=== PATIENT | male | born 1980 | race Caucasian/White ===

== ENCOUNTER 2018-01-28 11:38 | Emergency (ER) | payer OTHER ==
[2018-01-28] MEDS ORDERED: METHYLPREDNISOLONE 40 MG INJ ONE (12:06)
[2018-01-28] MEDS ORDERED: NA CHLORIDE 0.9% 1,000 ML ONE (12:06)
[2018-01-28] MEDS ORDERED: ALBUTEROL 2.5 MG/3 ML NEB SOL ONE (12:06)
[2018-01-28] MEDS ORDERED: IPRATROPIUM BROM 0.5MG/2.5ML ONE (12:06)
--- NOTE | 2018-01-28 12:22 | RAD REPORT ---
EXAM DESCRIPTION: Joann Single View01/28/2018 12:16 pm CLINICAL HISTORY: Shortness of breath COMPARISON: none FINDINGS: The lungs appear clear of acute infiltrate. The heart is normal size IMPRESSION: No acute abnormalities displayed
[2018-01-28 12:30] LABS: Absolute Lymphocytes (CBC) 1.5 K/uL (0.7-4.9); Absolute Monocytes 0.6 K/uL (0.1-1.3); Absolute Neutrophil 5.9 K/uL (1.8-8.0); Basophils % 0.8 % (0-1.3); Hematocrit 47.9 % (39.6-49.0); Lymphocytes % 18.6 % (15.3-44.8); Monocytes % 7.8 % (3.3-12.3); RBC Red Blood Cell Count 5.47 M/uL (4.33-5.43)
[2018-01-28 12:32] LABS: Protime INR 1.05
[2018-01-28] MEDS ORDERED: ONDANSETRON 4 MG/2 ML VIAL ONE (12:32)
[2018-01-28] MEDS ORDERED: BENZONATATE 100 MG CAP PO ONE (12:32)
[2018-01-28 12:37] LABS: ALT/SGPT 35 U/L (12-78); AST/SGOT 17 U/L (15-37); Albumin 4.5 g/dL (3.4-5.0); Alkaline Phosphatase 48 U/L (45-117); BUN Blood Urea Nitrogen 14 mg/dL (7-18); Bicarbonate 24 mmol/L (21-32); Bilirubin Direct 0.2 mg/dL (0-0.2); Glucose Level 86 mg/dL (74-106); Magnesium 2.4 mg/dL (1.8-2.4); NT PRO-BNP 14 pg/mL (<125); Potassium 3.7 mmol/L (3.5-5.1); Protein, Total 8.1 g/dL (6.4-8.2); Sodium Level 137 mmol/L (136-145); Troponin (Emerg Dept Use Only) < 0.02 ng/mL (0.0-0.045)
[2018-01-28 12:43] LABS: Arterial Blood Carboxyhemoglob 0.8 % (0-1.5); Blood Gas Oxyhemoglobin 95.4 % (94-97); Blood O2 Saturation 97.2 % (92-98.5)
[2018-01-28 12:52] LABS: Urine Blood NEGATIVE (NEG); Urine Glucose NEGATIVE (NEG); Urine Protein NEGATIVE (NEG)
[2018-01-28] MEDS ORDERED: LEVALBUTEROL 1.25 MG/3 ML NEB ONE (14:45)
[2018-01-28] MEDS ORDERED: KETOROLAC 30 MG/ML INJ ONE (14:45)
[2018-01-28] MEDS ORDERED: LEVALBUTEROL 0.63 MG/3 ML NEB ONE (14:45)
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
--- NOTE | 2018-01-29 07:02 | EKG ---
Test Date: 2018-01-28 Test Time: 11:57:24 Weasand Trimmer: SHEYLA MEASUREMENT RESULTS: Intervals: Rate: 79 NH: 198 QRSD: 86 QT: 318 QTc: 364 [place]: P: 42 NH: 198 QRS: -5 T: 31 INTERPRETIVE STATEMENTS: Normal sinus rhythm Cannot rule out Anterior infarct, age undetermined Abnormal ECG No previous ECG available for comparison Electronically Signed On 01-29-18 06:52:54 CATEGORY SPECIALIST by Abdi Omalley
== END 2018-01-28 16:19 | disposition home or self-care (01) ==
LOC: ER 11:38
DX: J70.5 Respiratory conditions due to smoke inhalation (principal); Z88.8 Allergy status to other drugs, medicaments and biological substances
CPT/HCPCS: 36415; 71045; 80048; 80076; 81003; 82805; 83735; 83880; 84484; 85025; 85610; 93005; 96361; 96374; 96375; 99285; J2405; J2920; J7030